=== PATIENT | male | born 1965 | race Caucasian/White ===

== ENCOUNTER 2024-10-21 12:48 | Inpatient (IN) ==
--- NOTE | 2024-10-21 13:41 | Emergency Department Note ---
Impression & Plan Closed left hip fracture, Fall due to ice or snow, Work related injury, Hypertension ED Provider Note CHIEF COMPLAINT: left hip pain, fall on ice HISTORY OF PRESENT ILLNESS: This 59-year-old male patient presents to the emergency department via ambulance for evaluation of left hip pain. 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 This injury happened at work. The patient states he landed on his left hip. He denies any head injury. He denies neck pain or loss of consciousness. He states he was unable to move or use the left lower extremity and needed assistance onto the ambulance stretcher. The patient has been unable to bear any weight. He denies any numbness or tingling. He denies any abdominal pain, back pain, chest pain, shortness of breath. He was given fentanyl by EMS and is complaining of some nausea. The patient denies loss of control of his bowel or bladder function. No history of injury to the left hip. He does report a history of hypertension, but states he does not take his prescribed medication because he does not feel like taking it. Last meal was last night. He states he had a brownie at about 10:45 this morning. Fall occurred around 11am. This was witnessed by his daughter and the client who corroborate the story. No LOC. No vision changes. History provided by: patient REVIEW OF SYSTEMS: A 10 system review of systems was performed with positives and pertinent negatives listed in the history of present illness. All other systems were reviewed and are negative. ALLERGIES: NKDA PHYSICAL EXAM: VITALS: Vitals are noted on the nurse's note and reviewed by myself. GENERAL: This is a 59-year-old male, in no acute distress, nondiaphoretic, well- developed well-nourished. SKIN: The skin was without rashes, erythema, edema, or bruising. There is no tenting of the skin. Capillary refill less than 2 seconds. HEAD: Normocephalic atraumatic. EARS: External auditory canals clear, tympanic membranes pearly pinedo without erythema or effusion bilaterally. No hemotympanum. Negative moseley sign EYES: Pupils equal round and reactive to light and accommodation. Conjunctivae without injection, sclerae without icterus. Extraocular movements intact. NOSE: Patent, turbinates without inflammation or discharge. No sinus tenderness. MOUTH: Mucous membranes moist. Tonsils are not enlarged. Pharynx without erythema or exudate. Uvula midline. Airway patent. Tongue does not deviate. NECK: Supple without nuchal rigidity. No lymphadenopathy. Cervical spine is nontender. No JVD. HEART: Regular rate and rhythm without murmurs gallops or rubs. LUNGS: Expiratory wheezing bilaterally. No retractions or accessory muscle use. ABDOMEN: Positive bowel sounds x 4. Soft, nontender, without masses or organomegaly. Roach sign negative. No guarding or rebound tenderness. MUSCULOSKELETAL: Tenderness to palpation of the left hip. The patient is unable to move the left lower extremity. No muscle atrophy, erythema, or edema noted. Full range of motion without joint tenderness in all extremities. No tenderness to palpation. Normal gait. Strength 5/5 throughout. NEURO: Patient was alert and oriented to person place and time. Normal sensation to light and sharp touch. Deep tendon reflexes 2+ throughout. No focal neurological deficits. An order was placed for continuous child monitor. The monitor showed a sinus bradycardia at a ventricular rate of 58 bpm, per my interpretation. EKG was reviewed by myself and found to be sinus bradycardia at a rate of 53 beats per minute and per my interpretation reveals prolonged QT with a QTc of 480ms. no prior EKG available for comparison. Imaging as interpreted by myself and the radiologist revealed left hip fracture, with radiologist interpretation as above. I agree with the radiologist's findings as based upon my independent interpretation. EMERGENCY DEPARTMENT COURSE: The patient was seen and evaluated as above. The patient presents to the emergency department for left hip pain after fall on the ice. The patient landed on his left hip. IV access was obtained, labs were drawn. The patient had been administered 300 mcg fentanyl via EMS while in route. This did resolve the patient's pain, though the patient did become hypoxic and did become hypoxic on initial evaluation during his ED visit. Initial concern was for left hip fracture given the patient's history and complaints. X-rays of the left hip and pelvis as well as chest x-ray were completed and reviewed by myself radiologist as noted. Patient was found to have acute, comminuted, angulated and displaced intertrochanteric left femoral fracture. Guillory catheter was placed. Labs reviewed. There is no leukocytosis. Mild anemia with a hemoglobin of 12.9. No thrombocytopenia. Renal, hepatic function and electrolytes without significant abnormality. INR 1.0. Urinalysis positive for blood, ketones, but no evidence of infection. Given the left hip fracture, I did recommend inpatient care. I discussed the case with Dr. Cabrera as well as his physician transition assistant, Chioma who were agreeable with inpatient admission, NPO after midnight, and likely surgery tomorrow. The patient and family were updated. They were agreeable to admission. I discussed the case with the manager facility. [facility] Did advise him of the patient's uncontrolled hypertension due to noncompliance as well as my concern for underlying COPD given his smoking history and wheezing on examination. [facility] Orthopedics will consult and likely operate in the morning. Please see hospitalist and orthopedics dictation regarding ongoing management and care of this patient. This visit is during a period of high volume and high acuity in the emergency department. I attest that I have personally reviewed the patient medication list. I attest that I have reviewed the patient's blood pressure and it was found to be elevated. Referred to hospitalist for further management GCS: 15 In the evaluation and treatment of this patient the following differential diagnoses were entertained: Fracture, dislocation, neurovascular compromise, compartment syndrome, soft tissue injury, as well as other pathologies. The chart was completed utilizing [email or web address] Speech voice recognition software. Grammatical errors, random word insertions, pronoun errors, and incomplete sentences are an occasional consequence of this system due to software limitations, ambient noise, and hardware issues. Any formal questions or concerns about the content, text, or information contained within the body of this dictation should be directly addressed to the provider for clarification. 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 Beliefs That Will Affect Care: None Current Living Situation: Significant Other Other Information That Helps Us Care for You: No Feels Safe at Home: Yes Safety Concerns: Feels Safe At This Time Assistive Devices: Glasses Allergies Allergies Allergy/AdvReac Type Severity Reaction Status Date / Time No Known Allergies Allergy Unverified 10/21/24 15:48 Home Meds Home Medications Medication Instructions Recorded Confirmed No Known Home Medications 10/21/24 10/21/24 Results & Data (ED) Vital Signs Vital Signs - 24 hr 10/21/24 13:06 10/21/24 13:11 10/21/24 13:49 Temperature 36.5 C Temperature Source Oral Pulse Rate 58 L 54 L Pulse Rate [Apical] Respiratory Rate 16 Respiratory Effort / Characteristics Non-Labored Spontaneous Respiratory Depth Normal Respiratory Pattern Regular Blood Pressure 187/108 H Blood Pressure [Right Arm] Blood Pressure Mean 134 Blood Pressure Mean [Right Arm] Blood Pressure Position Lying Blood Pressure Position [Right Arm] Pulse Oximetry 88 L 88 L 94 Oxygen Delivery Method Room Air Room Air Room Air Oxygen Flow Rate Sepsis Recent Fever Within 48 Hours No Sepsis New/Unexplained Change in Mental Status N/A Sepsis Action Taken by Nursing No Action Required Oxygen Flow Rate - Titration 2 Pulse Oximetry Post Tiitration 94 10/21/24 14:30 10/21/24 14:54 Temperature Temperature Source Pulse Rate 59 L Pulse Rate [Apical] 66 Respiratory Rate 16 Respiratory Effort / Characteristics Spontaneous Respiratory Depth Respiratory Pattern Blood Pressure Blood Pressure [Right Arm] 175/110 H Blood Pressure Mean Blood Pressure Mean [Right Arm] 131 Blood Pressure Position Blood Pressure Position [Right Arm] Lying Pulse Oximetry 95 Oxygen Delivery Method Nasal Cannula Oxygen Flow Rate 2 Sepsis Recent Fever Within 48 Hours Sepsis New/Unexplained Change in Mental Status Sepsis Action Taken by Nursing Oxygen Flow Rate - Titration Pulse Oximetry Post Tiitration Laboratory Data 10/21/24 13:40 10/21/24 13:40 Lab Results 10/21/24 Range/Units 13:40 WBC 7.65 (4.8-10.8) K/ul RBC 4.37 L (4.70-6.10) M/uL Hgb 12.9 L (14.0-18.0) g/dl Hct 37.7 L (42.0-52.0) % MCV 86.3 (80.0-100.0) fL MCH 29.5 (25.0-34.0) pg MCHC 34.2 (32.0-36.0) g/dL RDW Std Deviation 37.7 (36.4-46.3) fL RDW Coeff of Stacey 11.9 (11.5-14.5) % Plt Count 149 (130-400) K/uL MPV 9.0 L (9.4-12.4) fL Immature Gran % (Auto) 0.4 % Neut % (Auto) 74.7 % Lymph % (Auto) 18.2 % Loíza % (Auto) 5.1 % Eos % (Auto) 1.2 % Baso % (Auto) 0.4 % Neut # (Auto) 5.72 (1.40-6.50) K/uL Lymph # (Auto) 1.39 (1.20-3.40) K/uL [place] # (Auto) 0.39 (0.11-0.59) K/uL Eos # (Auto) 0.09 (0.00-0.50) K/uL Baso # (Auto) 0.03 (0.00-0.20) K/uL Immature Gran # (Auto) 0.03 (0.01-0.20) K/uL PT 10.9 (9.0-12.0) Seconds INR 1.0 (0.9-1.1) APTT 26 (21-31) Seconds PTT Ratio 1.0 Sodium 138 (136-145) mmol/L Potassium 3.8 (3.5-5.1) mmol/L Chloride 105 (98-107) mmol/L Carbon Dioxide 28 (21-32) mmol/L Anion Gap 5 (3-11) BUN 14 (6-23) mg/dl Creatinine 0.77 (0.6-1.4) mg/dl Est Cr Clr Drug Dosing 126.3 ml/min eGFR 103.77 BUN/Creatinine Ratio 18.2 (10-20) Glucose 171 H (70-99(Fasting)) mg/dl Calcium 8.3 L (8.6-10.3) mg/dl Total Bilirubin 0.4 (0.2-1.0) mg/dl AST 18 (13-39) U/L ALT 15 (7-52) U/L Alkaline Phosphatase 71 (34-104) U/L Total Protein 6.9 (6.0-8.3) gm/dl Albumin 4.2 (3.4-5.0) gm/dl Globulin 2.7 (2.5-4.0) gm/dl Albumin/Globulin Ratio 1.6 (0.9-2) Administered Medications Acetaminophen (Acetaminophen 325 Mg Tab) 650 mg PO Q6H EMILIE Stop: 11/20/24 16:14 Last Admin: 10/21/24 21:43 Dose: 650 mg Documented By: Admin: 10/21/24 16:57 Dose: 650 mg Documented By: NASIMA Albuterol (Albut/Ipratrop 3mg/0.5mg Neb 3 Ml Vial) 3 ml NEB Q6R [facility]; Protocol Stop: 11/20/24 18:59 Last Admin: 10/21/24 20:58 Dose: Not Given Documented By: GROVERB Budesonide (Budesonide 0.5 Mg/2 Ml Vial (Pulmicort)) 0.5 mg NEB BIDR [facility] Stop: 11/20/24 16:14 Last Admin: 10/21/24 20:57 Dose: 0.5 mg Documented By: Admin: 10/21/24 17:01 Dose: Not Given Documented By: KEIRY Docusate Sodium (Docusate Sodium 100 Mg Cap) 100 mg PO BID EMILIE Stop: 11/20/24 20:59 Last Admin: 10/21/24 21:44 Dose: Not Given Documented By: MARLA Formoterol Fumarate (Formoterol 20 Mcg/2 Ml Vial) 20 mcg NEB BIDR EMILIE Stop: 11/20/24 16:14 Last Admin: 10/21/24 20:57 Dose: 20 mcg Documented By: Admin: 10/21/24 17:02 Dose: Not Given Documented By: CRG Hydromorphone HCl (Hydromorphone Inj 1 Mg/Ml Syringe) 1 mg IV Q6H PRN PRN Reason: Severe Pain (Scale 7, 8, 9,10) Stop: 11/04/24 16:08 Last Admin: 10/21/24 18:01 Dose: 1 mg Documented By: HRB Discontinued Medications Fentanyl Citrate (Fentanyl Citrate Pf 100 Mcg/2 Ml Vial) 50 mcg IV NOW STA Stop: 10/21/24 15:13 Last Admin: 10/21/24 15:26 Dose: 50 mcg Documented By: NASIMA Hydrochlorothiazide (Hydrochlorothiazide 25 Mg Tab) 12.5 mg PO NOW STA Stop: 10/21/24 16:16 Last Admin: 10/21/24 16:59 Dose: 12.5 mg Documented By: NASIMA Lisinopril (Lisinopril 20 Mg Tab) 20 mg PO NOW STA Stop: 10/21/24 16:16 Last Admin: 10/21/24 16:58 Dose: 20 mg Documented By: NASIMA Methylprednisolone (Methylprednisolone 125 Mg/2 Ml Vial) 60 mg IV NOW STA Stop: 10/21/24 16:12 Last Admin: 10/21/24 16:57 Dose: 60 mg Documented By: NASIMA Morphine Sulfate (Morphine Sulfate 4 Mg/Ml 1 Ml Carp\Vial) 4 mg IV NOW STA Stop: 10/21/24 14:28 Last Admin: 10/21/24 14:32 Dose: 4 mg Documented By: EDUARDOK Ondansetron HCl (Ondansetron Inj 2 Mg/Ml 2 Ml Vial) 4 mg IV NOW STA Stop: 10/21/24 13:23 Last Admin: 10/21/24 13:44 Dose: 4 mg Documented By: TNK Imaging Data Radiologist's Impression: Chest X-Ray 10/21/24 13:23 SUPINE PORTABLE AP CHEST RADIOGRAPH CLINICAL HISTORY: Fall. Left hip pain. COMPARISON STUDY: No previous studies for comparison. FINDINGS: Lung volumes are normal. Lungs are clear. There is no pneumothorax or pleural effusion. Cardiac size is normal. Mediastinal contours are normal. There is no evidence for pulmonary edema. Postoperative findings within the spine are incidentally noted. IMPRESSION: No acute cardiopulmonary findings. ACT 112: Negative or not required by law. Electronically signed by: Chuckie Garza M.D. 10/21/2024 3:00 PM Hip/Pelvis X-Ray 10/21/24 13:23 XR hip LT 2V w pelvis HISTORY: 59 years-old Male pain, fall on ice acute left hip pain status post fall COMPARISON: None TECHNIQUE: AP view the pelvis with 2 views of the left hip FINDINGS: Acute comminuted angulated and mildly displaced fracture of the proximal left femur involves the intertrochanteric distribution. There may also be associated subtrochanteric extension. No dislocation. There is moderate soft tissue swelling. IMPRESSION: Acute, comminuted, angulated and displaced intertrochanteric left femoral fracture ACT 112: Negative or not required by law. The above report was generated using voice recognition software. It may contain grammatical, syntax or spelling errors. Electronically signed by: Sulaiman Winter M.D. 10/21/2024 2:48 PM Discharge Plan Visit Data Chief Complaint: Fall ED Provider: Aydin Arauz ED Midlevel Provider: Nikky Mora Discharge Problem: Closed left hip fracture, Fall due to ice or snow, Work related injury, Hypertension Patient Disposition: Admitted As Inpatient Discharge Instructions Interventions: ED Discharge Assessment Last Done: 10/21/24 17:18
[2024-10-21] MEDS: ONDANSETRON INJ 2 MG/ML 2 ML VIAL IV STA (13:44)
[2024-10-21 14:01] LABS: Basophils # (auto) 0.03 K/uL (0.00-0.20); Basophils % (auto) 0.4 %; Eosinophils # (auto) 0.09 K/uL (0.00-0.50); Eosinophils % (auto) 1.2 %; Hematocrit (blood only) 37.7 % (42.0-52.0); Hemoglobin 12.9 g/dl (14.0-18.0); Immature Granulocytes # (auto) 0.03 K/uL (0.01-0.20); Immature Granulocytes % (auto) 0.4 %; Lymphocytes # (auto) 1.39 K/uL (1.20-3.40); Lymphocytes % (auto) 18.2 %; Mean Corpuscular Hemoglobin 29.5 pg (25.0-34.0); Mean Corpuscular Hgb Conc 34.2 g/dL (32.0-36.0); Mean Corpuscular Volume 86.3 fL (80.0-100.0); Monocytes # (auto) 0.39 K/uL (0.11-0.59); Monocytes % (auto) 5.1 %; Neutrophils # (auto) 5.72 K/uL (1.40-6.50); Neutrophils % (auto) 74.7 %; Platelet Count 149 K/uL (130-400); RDW Coefficient of Variation 11.9 % (11.5-14.5); RDW Standard Deviation 37.7 fL (36.4-46.3); Red Blood Count 4.37 M/uL (4.70-6.10); White Blood Count 7.65 K/ul (4.8-10.8)
[2024-10-21 14:25] LABS: Albumin Globulin Ratio 1.6 (0.9-2); Albumin Level 4.2 gm/dl (3.4-5.0); BUN Creatinine Ratio 18.2 (10-20); Bilirubin,Total 0.4 mg/dl (0.2-1.0); Calcium 8.3 mg/dl (8.6-10.3); Creatinine Clr Calc Pharmacy 126.3 ml/min; Globulin 2.7 gm/dl (2.5-4.0); Potassium 3.8 mmol/L (3.5-5.1); Total Protein 6.9 gm/dl (6.0-8.3)
[2024-10-21 14:29] LABS: Partial Thromboplastin Time 26 Seconds (21-31); Prothrombin Time 10.9 Seconds (9.0-12.0)
[2024-10-21] MEDS: MoRPHine SULFATE 4 MG/ML 1 ML CARP\\VIAL IV STA (14:32)
--- NOTE | 2024-10-21 14:49 | XRay Report ---
XR hip LT 2V w pelvis HISTORY: 59 years-old Male pain, fall on ice acute left hip pain status post fall COMPARISON: None TECHNIQUE: AP view the pelvis with 2 views of the left hip FINDINGS: Acute comminuted angulated and mildly displaced fracture of the proximal left femur involves the inte rtrochanteric distribution. There may also be associated subtrochanteric extension. No dislocation. T here is moderate soft tissue swelling. IMPRESSION: Acute, comminuted, angulated and displaced intertrochanteric left femoral fracture ACT 112: Negative or not required by law. The above report was generated using voice recognition software. It may contain grammatical, syntax o r spelling errors. Electronically signed by: Sulaiman Winter M.D. 10/21/2024 2:48 PM
--- NOTE | 2024-10-21 15:01 | XRay Report ---
SUPINE PORTABLE AP CHEST RADIOGRAPH CLINICAL HISTORY: Fall. Left hip pain. COMPARISON STUDY: No previous studies for comparison. FINDINGS: Lung volumes are normal. Lungs are clear. There is no pneumothorax or pleural effusion. Car diac size is normal. Mediastinal contours are normal. There is no evidence for pulmonary edema. Posto perative findings within the spine are incidentally noted. IMPRESSION: No acute cardiopulmonary findings. ACT 112: Negative or not required by law. Electronically signed by: Chuckie Garza M.D. 10/21/2024 3:00 PM
[2024-10-21] MEDS: fentaNYL citrate PF 100 MCG/2 ML VIAL IV STA (15:26)
[2024-10-21] MEDS ORDERED: LEVALBUTEROL HCL 0.63 MG/3 ML NEB NEB PRN (16:11)
[2024-10-21] MEDS ORDERED: ALUMINUM/MAGNESIUM SUSP 30 ML UDC PO PRN (16:12)
[2024-10-21] MEDS ORDERED: ONDANSETRON INJ 2 MG/ML 2 ML VIAL IV PRN (16:12)
[2024-10-21] MEDS ORDERED: MAGNESIUM HYDROXIDE SUSP 30 ML UDC PO PRN (16:12)
[2024-10-21] MEDS ORDERED: hydrALAZINE HCL 25 MG TAB PO PRN (16:16)
--- NOTE | 2024-10-21 16:30 | Electrocardiogram Report ---
Test Reason : Blood Pressure : */* mmHG Vent. Rate : 53 BPM Atrial Rate : 53 BPM P-R Int : 136 ms QRS Dur : 86 ms QT Int : 512 ms P-R-T Axes : 68 56 71 degrees QTcB Int : [address] elevation, consider early repolarization, pericarditis, or injury Prolonged QT Abnormal ECG No previous ECGs available Confirmed by Ventura Brown ([id number]) on 10/21/2024 4:30:33 PM Referred By: REFERRED SELF Confirmed By: Ventura Brown
--- NOTE | 2024-10-21 16:37 | History & Physical Report ---
Date of Service October 21, 2024 Assessment & Plan (1) Closed left hip fracture: Plan Mechanical fall Left Hip fracture Admitting left hip XR with Acute, comminuted, angulated and displaced intertrochanteric left femoral fracture Pain management, bowel regimen, nausea medications N.p.o. midnight RCRI index - risk of major cardiac event 3.9. Pt at mild to mod risk for much needed hip sx. Mild COPD exacerbation: Patient reports that he does not have diagnosis of COPD, given his smoking history he must have undiagnosed underlying COPD. Patient with some mild wheezing bilaterally on exam. Patient denies any increase/change in his baseline cough or nature of sputum production. Patient denies sore throat or acute viral illness. CXR with no acute finding. Will give him IV steroid x1 then nebulization w/ budesonide and Perforomist. Patient made aware that he will need pulmonary function test in about 2 to 3 months time upon discharge. Will continue to optimize the lung function during hospital stay. Hypertensive urgency: Blood pressure elevated at 187/108 at presentation. Patient noncompliant with his blood pressure medication, patient has a history of hypertension. Now pain also contributing to his high BP. Restart his home lisinopril and hydrochlorothiazide. As needed hydralazine for blood pressure of > 165 mmHg. DVT prophylaxis: SCDs Full code History of Present Illness Chief Complaint: fall, left hip pain Primary Care Provider: Qing Melo PA-C 59-year-old male with PMH of HTN, medical noncompliance, ongoing tobacco use abuse [15 cigarettes a day for more than 45 years] presented to the ED after he slipped on ice and hit his left hip. Came in with complaint of left hip pain. Patient denies any lightheadedness/dizziness/palpitation prior to fall. Patient noted to have left hip fracture. Patient denies fever/sore throat/nausea/vomiting/chest pain/acute changes in bowel or bladder habits/acute changes in appetite. Patient reports he was on lisinopril and hydrochlorothiazide in the past for blood pressure management, he discontinued those medications by himself because he didn't like it made him pee. Patient reports his cough at baseline, denies any increase in frequency of the cough or any change in the mucus production. Patient reports smoking 15 cigarettes a day for more than 45 years. Patient denies previous drug use, reports very occasional alcohol drinks. Full code Medication reviewed with the patient at bedside. Plan of care discussed with the patient at bedside who voiced understanding and was agreeable to plan of care. Allergies Allergy/AdvReac Type Severity Reaction Status Date / Time No Known Allergies Allergy Unverified 10/21/24 15:48 Home Medications Medication Instructions Recorded Confirmed Type No Known Home Medications 10/21/24 10/21/24 History Past Med/Surg History Problem List (Updated 10/21/24 @ 16:37 by Paulette Carrillo MD) Closed left hip fracture Medical History Hypertension Social History Smoking Status: Current every day smoker Tobacco Type: Cigarettes Feels Safe at Home: Yes Review of Systems Review of Systems: Negative otherwise mentioned in HPI. Physical Exam Physical Exam: GENERAL: Alert and oriented x3. NAD, on RA. HEENT: No pallor, no icterus. Pupils equal, round and reactive to light. Oral mucosa moist. NECK: No JVD, no neck masses. HEART: S1 and S2 heard. Regular rate and rhythm. No murmur, no gallop. RESPIRATORY SYSTEM: Normal AP diameter. No accessory muscle use. b/l wheezing, no crackles. ABDOMEN: Soft, bowel sounds present, nontender, no distention. CENTRAL NERVOUS SYSTEM: No facial droop. Speech is clear. Obeys simple commands. Moves extremities. EXTREMITIES: No edema, no erythema seen. LLE ext rotated/shortened. Lt hip tender rom. Results & Data Results & Data Vital Signs (Past 12 Hours) Vital Signs Temp Pulse Pulse Resp BP BP Pulse Ox 10/21/24 14:54 59 L 10/21/24 14:30 66 16 175/110 H 95 10/21/24 13:49 54 L 94 10/21/24 13:11 88 L 10/21/24 13:06 36.5 C 58 L 16 187/108 H 88 L O2 Del Method O2 Flow Rate 10/21/24 14:54 10/21/24 14:30 Nasal Cannula 2 10/21/24 13:49 Room Air 10/21/24 13:11 Room Air 10/21/24 13:06 Room Air
[2024-10-21] MEDS: ACETAMINOPHEN 325 MG TAB PO SCH (16:57)
[2024-10-21] MEDS: methylPREDNISolone 125 MG/2 ML VIAL IV STA (16:57)
[2024-10-21] MEDS: lisinopril 20 MG TAB PO STA (16:58)
[2024-10-21] MEDS: hydroCHLOROthiazide 25 MG TAB PO STA (16:59)
[2024-10-21] MEDS: BUDESONIDE 0.5 MG/2 ML VIAL (PULMICORT) NEB SCH (17:01)
[2024-10-21] MEDS: FORMOTEROL 20 MCG/2 ML VIAL NEB SCH (17:02)
--- NOTE | 2024-10-21 17:05 | Orthopedic Consultation ---
Date of Service October 21, 2024 Assessment & Plan (1) Closed left hip fracture: He was educated on this injury and we discussed treatment options. I recommend surgical fixation specifically we'll plan on doing a long troch nail of the left femur. Procedure was explained and he wants to proceed with surgery. NPO after midnight for surgery Sunday 10/22, long troch nailing of left femur History of Present Illness Reason for Consultation: . Requesting Physician: . .59 year old patient slipped and fell on the ice today and injured his left hip. He was unable to get up/walk. Xrays revealed a displaced comminuted left intertroch/subtroch fx. He was admitted to the hospitalist service. Denies hip pain prior to the fall. No other injuries. Allergies Allergy/AdvReac Type Severity Reaction Status Date / Time No Known Allergies Allergy Unverified 10/21/24 15:48 Home Medications Medication Instructions Recorded Confirmed Type No Known Home Medications 10/21/24 10/21/24 History Past Med/Surg History Problem List Closed left hip fracture Medical History Hypertension Social History Smoking Status: Current every day smoker Tobacco Type: Cigarettes Feels Safe at Home: Yes Review of Systems All systems reviewed & are unremarkable except as noted in HPI & below. Physical Exam . alert and oriented. NAD Left leg: +swelling in his thigh, tender to palpation. Able to dorsiflex and plantarflex. NVI Results & Data Results & Data Laboratory Results . Diagnostic Findings .xrays show a left displaced comminuted intertroch/subtroch femur fx. PG Care Time/CCT Total # of Minutes Spent Total Time Spent with Patient: Total time spent is greater than 50% in coordination of care (as documented) at patient's floor/unit and/or counseling patient: Coding Level of Care Code 83820 IN/OBS CONSULT LVL 4,60M (57 - DECISION FOR SURGERY) Diagnoses Closed left hip fracture S72.002A
--- NOTE | 2024-10-21 17:08 | Anesthesiology Consultation ---
Date of Service October 21, 2024 Assessment & Plan Chart Review Chart Review: Acceptable Risk for Surgery and Patient NOT seen in Pre Admission Testing Consults Requested none ASA ASA3 Proposed Anesthesia Anesthesia Type: General History Surgery Operation Date: 10/22/24 07:30 Proposed Procedures p Left Long Trochanteric Nail - Jared Cabrera MD Height/Weight Height: 5 ft 11 in Weight: 100.6 kg Allergies Allergy/AdvReac Type Severity Reaction Status Date / Time No Known Allergies Allergy Unverified 10/21/24 15:48 Medications Home Medications Medication Instructions Recorded Confirmed Last Taken No Known Home Medications 10/21/24 10/21/24 Unknown Active Medications Generic Name Dose Route Start Last Admin Trade Name Freq PRN Reason Stop Dose Admin Acetaminophen 650 mg 10/21/24 16:15 10/21/24 16:57 Acetaminophen 325 Mg Tab PO 11/20/24 16:14 650 mg Q6H EMILIE Administration Budesonide 0.5 mg 10/21/24 16:15 10/21/24 17:01 Budesonide 0.5 Mg/2 Ml Vial (Pulmicort) NEB 11/20/24 16:14 Not Given BIDR EMILIE Formoterol Fumarate 20 mcg 10/21/24 16:15 10/21/24 17:02 Formoterol 20 Mcg/2 Ml Vial NEB 11/20/24 16:14 Not Given BIDR EMILIE Past Medical History Medical History Hypertension obese cigarette smoker COPD HTN Medically non-compliant Exercise / Class Metabolic Activity II 4-5 Yardwork/Stairs/Walk up hill Past Anesthesia History No Hx of Anesthesia Complications and No Family Hx of Anesthesia Complications History of PONV No Hx of PONV and No Hx of Motion Sickness Social History Smoking Status: Current every day smoker Physical Exam Vital Signs Last Vital Signs Temp 36.5 C 10/21/24 13:06 Pulse 68 10/21/24 16:34 Resp 18 10/21/24 16:34 BP 181/110 H 10/21/24 16:34 Pulse Ox 98 10/21/24 16:34 O2 Del Method Room Air 10/21/24 16:34 O2 Flow Rate 2 10/21/24 14:30 Testing Laboratory Results 10/21/24 13:40 10/21/24 13:40 PT 10.9 Seconds (9.0-12.0) 10/21/24 13:40 INR 1.0 (0.9-1.1) 10/21/24 13:40 APTT 26 Seconds (21-31) 10/21/24 13:40 Electrocardiogram Date: 10/21/24 Findings: + SB @ (@ 53;ST elevation;prolonged QT) Chest X-Ray Date: 10/21/24 Findings: + NAD
[2024-10-21 17:56] LABS: Appearance Urine Clear (Clear); Bacteria Urine Automated None Seen (None Seen); Bilirubin Urine Negative (Negative); Blood Urine 2+ (Negative); Cast Urine Automated 0-2 /lpf (0-2); Color Urine Yellow; Epithelial Cell Urine Auto 0-2 /hpf (0-2); Glucose Urine UA Negative (Negative); Ketones Urine 1+ (Negative); Leukocyte Esterase Urine Negative (Negative); Nitrite Urine Negative (Negative); Protein Urine Negative (Negative); RBC Urine Automated >20 /hpf (0-2); Urobilinogen Urine Negative (Negative); WBC Urine Automated 0-5 /hpf (0-5); pH Urine 6.5 (4.5-7.5)
[2024-10-21] MEDS: HYDROmorphone INJ 1 MG/ML SYRINGE IV PRN (18:01)
[2024-10-21] MEDS ORDERED: ceFAZolin 2000MG 2,000 MG/15 ML SYR IV ONE (18:27)
[2024-10-21] MEDS: ALBUT/IPRATROP 3MG/0.5MG NEB 3 ML VIAL NEB SCH (20:58)
[2024-10-21] MEDS: DOCUSATE SODIUM 100 MG CAP PO SCH (21:44)
--- OUTSIDE RECORDS SUMMARY | 2024-10-21 23:58 | External Medical Summary | Summary of Care ---
Author Name Unknown Organization [facility] Address [address] [facility] [place] [address] Phone [phone] Care Team Providers Care Client Services Assistant Name Role Phone Qing Melo PA-C Primary Care Provider Encounter Details Date Type Department Care Team (Late st Contact Info) Description 05/14/2024 Orders Only PATIENT PORTAL DO NOT DELETE THIS DEPT USED BY [place] [id number] Allergies No known active allergiesdocumented as of this encounter (statuses as of 05/14/2024) Medications Medication Sig Dispensed Refills Start Date End Date Status Clobetasol Propionate 0.05 % External Ointment (Temovate) Apply twice a day to affected areas long as needed 60 g 5 01/19/2024 Active predniSONE 20 MG Oral Tablet (Deltasone)Indication s:Acute right-sided low back pain without sciatica Take 3 tabs for 3 days, 2 tabs for 3 days, 1 tab for 3 days, 1/2 tab for 3 days 20 Tablet 02/15/2024 Active Cyclobenzaprine HCl 10 MG Oral Tablet (Flexeril)Indications :Muscle spasm of back Take 1 Tablet by mouth 2 times a day as needed for Muscle spasms. 20 Tablet 02/15/2024 Active hydroCHLOROthiazide 12.5 MG Oral Capsule Take 1 Capsule by mouth in the morning. 90 Capsule 05/04/2024 Active Lisinopril 20 MG Oral Tablet (Prinivil)Indications :Essential hypertension with goal blood pressure less than 140/90 TAKE 1 TABLET BY MOUTH EVERY DAY IN THE MORNING 30 Tablet 05/10/2024 Active documented as of this encounter (statuses as of 05/14/2024) Active Problems Problem Noted Date Diagnosed Date Essential hypertension with goal blood pressure less than 140/90 03/13/2016 Lymph node enlargement 12/24/2012 Backache 12/05/2011 Neck stiffness 12/05/2011 Tingling 12/05/2011 Tobacco use disorder 12/05/2011 documented as of this encounter (statuses as of 05/14/2024) Resolved Problems Problem Noted Date Diagnosed Date Resolved Date Mesenteric panniculitis 02/23/201501/05 MEDICATION USE AGREEMENT 08/25/2013 Swelling, mass, or lump in chest 12/24/2012 02/18/2023 Asthma, mild persistent 05/23/201102/05 Abdominal or pelvic swelling , mass or lump, unspecified site 01/08/2011 02/18/2023 documented as of this encounter (statuses as of 05/14/2024) Immunizations Name Administration Dates Next Due Pneumococcal Polysaccharide PPV23 (Pneumovax) 09/21/2012 Seasonal Influenza, Trivalen t, (IIV3), with Preserv, (Fluzone) 07/05/2014,06/06/2013,09/20/2012 TDAP, Age 7 and older, IM (Adacel) 11/05/2011 documented as of this encounter Social History Tobacco Use Types Packs/Day Years Used Date Smoking Tobacco: Some Days Cigarettes 0.5 30 Smokeless Tobacco: Former Chew Comments:Is looking into the wellness program-Smokes< 1 pack/day Alcohol Use Standard Drinks/Week Comments No 0 (1 standard drink = 0.6 oz pur e alcohol) socially rare holiday Utilities Answer Date Recorded Do you have trouble paying y our heating, water, or electric bill? (Adult - for ages 18 years and over) Not on file 02/23/2024 Is your family able to pay t he heat, water, or electric bill? (Household - for ages 0-17 years) Not on file 02/23/2024 Does your family have access to good internet? (Household - for ages 0-17 years) Not on file 02/23/2024 Social Connections Answer Date Recorded How often do you feel lonely or isolated from those around you? (Adult - for ages 18 years and over) Not on file 02/23/2024 Sex and Gender Information Value Date Recorded Sex Assigned at Not on file Gender Identity Not on file Sexual Orientation Not on file Job Start Date Occupation Industry Not on file Not on file Not on file documented as of this encounter Plan of Treatment Health Maintenance Due Date Last Done Comments HIV Screening 1981 Hepatitis B Vaccine (1 of 3 - 19+ 3-dose series) 1985 Cologuard 2011 Fecal Occult Blood Test 2011 Sigmoidoscopy 2011 Pneumococcal Vaccine: Pediatrics (0 to 5 Years) and At-Risk Patients (6 to 64 Years) (2 of 2 - PCV) 09/21/2013 09/21/2012 Zoster Vaccines (1 of 2) 2016 Depression Screening 12/04/2016 12/05/2015 Lipid Panel 07/14/2019 07/14/2014, 11/28/2010 DTap/Tdap Vaccines (2 - Td or Tdap) 11/04/2021 11/05/2011 GFR 11/30/2023 11/29/2022, 02/05, 11/02/2015, Additional history exists COVID-19 Vaccine ( - season) 2024 Influenza Vaccine (FLU shot) (#1) 2024 07/05/2014, 06/06/2013, 09/20/2012 Diabetes Screening 11/29/2025 11/29/2022, 0 11/02/2015, 01/22/2015, Additional history exists Colonoscopy 07/14/2026 07/14/2016 Colorectal Cancer Screening 07/14/2026 Albumin/Creatinine Ratio 11/05/2026 11/06/2023 Hepatitis C Screening Completed 12/14/2015 HPV (Gardasil) Vaccine Aged Out No lo nger eligible based on patient's age to complete this topic MENINGOCOCCAL (MENACTRA/MENVEO) Aged Out No longer eligible based on patient's age to complete this topic documented as of this encounter Medical Devices Not on filedocumented as of this encounter Advance Directives * Full Code (Latest Code Status on File) Date Activated Date Inactivated Comments 03/01/2011 11:20 AM 03/02/2011 6:26 PM This order reflects the patients wishes and were consensually agreed upon. Care Teams Client Services Assistant Relationship Specialty Start Date End Date Qing Melo PA-C [facility] [place], [place] [phone] PCP - General Physician Glass Installer 02/18/23 documented as of this encounter
--- OUTSIDE RECORDS SUMMARY | 2024-10-21 23:58 | External Medical Summary | Summary of Care ---
Author Name Unknown Organization [facility] Address [address] [place] [address] Phone [phone] Care Team Providers Care Desizing Pad Operator Name Role Phone Qing Melo PA-C Primary Care Provider Reason for Visit * Reason Onset Date Comments Medication Refill 05/04/2024 Encounter Details Date Type Department Care Team (Late st Contact Info) Description 05/04/2024 Refill [facility] [address] [place] [address] Qing Melo PA-C [address] [place], [place] [phone] Allergies No known active allergiesdocumented as of this encounter (statuses as of 06/02/2024) Medications Medication Sig Dispensed Refills Start Date End Date Status Clobetasol Propionate 0.05 % External Ointment (Temovate) Apply twice a day to affected areas long as needed 60 g 5 01/19/2024 Active predniSONE 20 MG Oral Tablet (Deltasone)Indica tions:Acute right-sided low back pain without sciatica Take 3 tabs for 3 days, 2 tabs for 3 days, 1 tab for 3 days, 1/2 tab for 3 days 20 Tablet 02/15/2024 Active Cyclobenzaprine HCl 10 MG Oral Tablet (Flexeril)Indicat ions:Muscle spasm of back Take 1 Tablet by mouth 2 times a day as needed for Muscle spasms. 20 Tablet 02/15/2024 Active hydroCHLOROthiazi de 12.5 MG Oral Capsule Take 1 Capsule by mouth in the morning. 90 Capsule 05/04/2024 Active Lisinopril 20 MG Oral Tablet (Prinivil)Indicat ions:Essential hypertension with goal blood pressure less than 140/90 Take 1 Tablet by mouth in the morning. 90 Tablet 1 11/02/2023 05/10/20 24 Discontinued hydroCHLOROthiazi de 12.5 MG Oral Capsule (Hydrodiuril) Take 1 Capsule by mouth in the morning. 90 Capsule 1 11/06/2023 05/04/20 24 Discontinued(Ref ill) documented as of this encounter (statuses as of 06/02/2024) Active Problems Problem Noted Date Diagnosed Date Essential hypertension with goal blood pressure less than 140/90 03/13/2016 Lymph node enlargement 12/24/2012 Backache 12/05/2011 Neck stiffness 12/05/2011 Tingling 12/05/2011 Tobacco use disorder 12/05/2011 documented as of this encounter (statuses as of 06/02/2024) Resolved Problems Problem Noted Date Diagnosed Date Resolved Date Mesenteric panniculitis 02/23/201501/05 MEDICATION USE AGREEMENT 08/25/2013 Swelling, mass, or lump in chest 12/24/2012 02/18/2023 Asthma, mild persistent 05/23/201102/05 Abdominal or pelvic swelling , mass or lump, unspecified site 01/08/2011 02/18/2023 documented as of this encounter (statuses as of 06/02/2024) Immunizations Name Administration Dates Next Due Pneumococcal [...] on file documented as of this encounter Miscellaneous Notes * Telephone Encounter - Irma Angel OSA - 06/02/2024 2:11 PM EDT Appointment scheduled for 11/02/2023 with Qing Melo * Telephone Encounter - Qing Melo PA-C - 05/04/2024 9:35 AM EDT 90 day rx sent, no further refills until a routine visit with a PCP * Telephone Encounter - Qing Melo PA-C - 05/04/2024 9:35 AM EDT Signed Prescriptions: Disp Refills hydroCHLOROthiazide 12.5 MG Oral Capsule 90 Cap*0 Sig: Take 1 Capsule by mouth in the morning. Authorizing Provider: QING MELO * Telephone Encounter - Justa Wells MED ASSIST - 05/04/2024 8:25 AM EDT No prescriptions requested or ordered in this encounter Last Visit: 01/19/2024 (in office), Visit date not found (telemedicine) Next Visit: Visit date not found Last date the medication was ordered: 11/06/2023 Patient Active Problem List Diagnosis Backache Neck stiffness Tingling Tobacco use disorder Lymph node enlargement Essential hypertension with goal blood pressure less than 140/90 Labs: Lab Results Component Value Date/Time CREATININE - [facility] 0.9 11/29/2022 07:45 PM CREATININE - [facility] 1.0 11/02/2015 02:36 PM CREATININE, RANDOM URINE - [facility] 91 11/06/2023 02:42 PM CREATININE-OUTSIDE LAB 1.00 01/22/2015 12:00 AM Lab Results Component Value Date/Time POTASSIUM - [facility] 4.0 11/29/2022 07:45 PM POTASSIUM - [facility] 4.3 11/02/2015 02:36 PM POTASSIUM-OUTSIDE LAB 3.9 01/22/2015 12:00 AM Lab Results Component Value Date/Time TSH - [facility] 2.06 11/02/2015 02:36 PM Lab Results Component Value Date/Time LDL CHOLESTEROL (CALCULATED) - [facility] 68 07/14/2014 11:02 AM LDL CHOLESTEROL (CALCULATED) - [facility] 65 11/28/2010 11:05 AM Lab Results Component Value Date/Time ALT - [facility] 29 12/14/2015 09:24 AM Hemoglobin AIC Results: No results found for: "HEMOGLOBIN A1C" documented in this encounter Plan of Treatment Upcoming Encounters Date Type Department Care Team (Late st Contact Info) Description 11/02/2024 9:00 AM EST Office Visit [facility] [address] [place], [place] [phone] Qing Melo PA-C [address] [place], [place] [phone] Health Maintenance Due Date Last Done Comments [...] 02/05, 11/02/2015, Additional history exists COVID-19 Vaccine (1 - season) 2024 Influenza Vaccine (FLU shot) [...] and were consensually agreed upon. Care Teams Desizing Pad Operator Relationship Specialty Start Date End Date Qing Melo PA-C [address] [place] [address] PCP - General Physician Director Of Financial Reporting 02/18/23 documented as of this encounter
--- OUTSIDE RECORDS SUMMARY | 2024-10-21 23:58 | External Medical Summary | Summary of Care ---
Author Name Unknown Organization [facility] Address [address] [place] [address] Phone [phone] Care Team Providers Care Bogger Operator Name Role Phone Qing Melo PA-C Primary Care Provider Reason for Visit * Reason Comments eRx-Medication Refill Encounter Details Date Type Department Care Team (Late st Contact Info) Description 05/08/2024 Refill [facility] [address] [place], [place] [phone] Qing Melo PA-C [address] [place], [place] [phone] Lipid screening*; Essential hypertension with goal blood pressure less than 140/90 Allergies No known active allergiesdocumented as of this encounter (statuses as of 05/12/2024) Medications Medication Sig Dispensed Refills Start Date End Date Status Clobetasol Propionate 0.05 % External Ointment (Temovate) Apply twice a day to affected areas long as needed 60 g 5 01/19/2024 Active predniSONE 20 MG Oral Tablet (Deltasone)Indicat ions:Acute right-sided low back pain without sciatica Take 3 tabs for 3 days, 2 tabs for 3 days, 1 tab for 3 days, 1/2 tab for 3 days 20 Tablet 02/15/2024 Active Cyclobenzaprine HCl 10 MG Oral Tablet (Flexeril)Indicati ons:Muscle spasm of back Take 1 Tablet by mouth 2 times a day as needed for Muscle spasms. 20 Tablet 02/15/2024 Active hydroCHLOROthiazid e 12.5 MG Oral Capsule Take 1 Capsule by mouth in the morning. 90 Capsule 05/04/2024 Active Lisinopril 20 MG Oral Tablet (Prinivil)Indicati ons:Essential hypertension with goal blood pressure less than 140/90 TAKE 1 TABLET BY MOUTH EVERY DAY IN THE MORNING 30 Tablet 05/10/2024 Active Lisinopril 20 MG Oral Tablet (Prinivil)Indicati ons:Essential hypertension with goal blood pressure less than 140/90 Take 1 Tablet by mouth in the morning. 90 Tablet 1 11/02/2023 Discontinued documented as of this encounter (statuses as of 05/12/2024) Active Problems Problem Noted Date Diagnosed Date Essential hypertension with goal blood pressure less than 140/90 03/13/2016 Lymph node enlargement 12/24/2012 Backache 12/05/2011 Neck stiffness 12/05/2011 Tingling 12/05/2011 Tobacco use disorder 12/05/2011 documented as of this encounter (statuses as of 05/12/2024) Resolved Problems Problem Noted Date Diagnosed Date Resolved Date Mesenteric panniculitis 02/23/201501/05 MEDICATION USE AGREEMENT 08/25/2013 Swelling, mass, or lump in chest 12/24/2012 02/18/2023 Asthma, mild persistent 05/23/201102/05 Abdominal or pelvic swelling , mass or lump, unspecified site 01/08/2011 02/18/2023 documented as of this encounter (statuses as of 05/12/2024) Immunizations Name Administration Dates Next Due Pneumococcal [...] encounter Miscellaneous Notes * Telephone Encounter - Ester Barrientos - 05/12/2024 3:53 PM EDT Received message from [facility] regarding patient needing an appointment and labs. Patient was notified. Successfully contacted patient and provided [facility] message. * Telephone Encounter - Deyanira Lewis PHARM Tech - 05/12/2024 3:41 PM EDT Received message from [facility] regarding patient needing an appointment and labs. Call Placed, Pt was agreeable to set up appointment but did not want to schedule at this time. Patient advised they will call back to set up appointment. Pt was driving. Thank you, Deyanira Lewis [facility] Career Guidance Technician II [facility] 05/12/2024,3:41 PM * Telephone Encounter - Irene Tyson [facility] - 05/10/2024 2:04 PM EDTSigned Prescriptions: Disp Refills Lisinopril 20 MG Oral Tablet (Prinivil) 30 Tab*0 Sig: TAKE 1 TABLET BY MOUTH EVERY DAY IN THE MORNING Authorizing Provider: QING MELO Ordering User: IRENE TYSON * Telephone Encounter - Irene Tyson RPh - 05/10/2024 2:01 PM EDT Provided 30 days supply with 0 refill. Per refill protocol patient should have routine labs on filewithin past year. Reviewed AMP report, Care Gaps/Health Maintenance, medications list, and for any routine labs typically ordered for this patient. Lab orders placed. Please contact patient to schedule office visit with PRIMARY CARE and advise of labs ordered for blood draw. Recommend patient to fast if able for labs. Patient may still have water and regular medications. Advise to obtain labs before requesting the next refill. Last Visit: 01/19/2024- acute (in office), Visit date not found (telemedicine) Next Visit: Visit date not found Thank you, Irene Tyson, PharmD Clinical Pharmacist [facility] [phone] 05/10/2024, 2:02 PM documented in this encounter Plan of Treatment Scheduled Orders Name Type Priority Associated Diagnoses Orde r Schedule LIPID PANEL WITH DIRECT LDL IF TG IS HIGH Lab Routine Lipid screening Expected: 05/10/2024, Expires: 05/10/2025 BASIC METABOLIC PANEL Lab Routine Essential hypertension with goal blood pressure less than 140/90 Expected: 05/10/2024, Expires: 05/10/2025 Health Maintenance Due Date Last Done Comments [...] Not on filedocumented as of this encounter Visit Diagnoses Diagnosis Lipid screening- Primary Screening for lipoid disorders Essential hypertension with goal blood pressure less than 140/90 documented in this encounter Advance Directives * Full Code (Latest Code Status on File) Date Activated Date Inactivated Comments 03/01/2011 11:20 AM 03/02/2011 6:26 PM This order reflects the patients wishes and were consensually agreed upon. Care Teams Bogger Operator Relationship Specialty Start Date End Date Qing Melo PA-C [facility] [address] PCP - General Physician Dust Brush Assembler 02/18/23 documented as of this encounter
--- OUTSIDE RECORDS SUMMARY | 2024-10-21 23:58 | External Medical Summary | Summary of Care ---
Author Name Unknown Organization [facility] Address [address] [place] [address] Phone [phone] Care Team Providers Care Patient Relations Representative Name Role Phone Qing Melo PA-C Primary Care Provider Reason for Visit * Reason Onset Date Comments Medication Refill 05/04/2024 Encounter Details Date Type Department Care Team (Late st Contact Info) Description 05/04/2024 Refill [facility] [address] [place] [address] Qing Melo PA-C [address] [place], [place] [phone] Allergies No known active allergiesdocumented as of this encounter (statuses as of 05/04/2024) Medications Medication Sig Dispensed Refills Start Date End Date Status Lisinopril 20 MG Oral Tablet (Prinivil)Indicati ons:Essential hypertension with goal blood pressure less than 140/90 Take 1 Tablet by mouth in the morning. 90 Tablet 1 11/02/2023 Active Clobetasol Propionate 0.05 % External Ointment (Temovate) [...] in the morning. 90 Capsule 05/04/2024 Active hydroCHLOROthiazid e 12.5 MG Oral Capsule (Hydrodiuril) Take 1 Capsule by mouth in the morning. 90 Capsule 1 11/06/2023 05/04/2024 Discontinue d(Refill) documented as of this encounter (statuses as of 05/04/2024) Active Problems Problem Noted Date Diagnosed Date Essential hypertension with goal blood pressure less than 140/90 03/13/2016 Lymph node enlargement 12/24/2012 Backache 12/05/2011 Neck stiffness 12/05/2011 Tingling 12/05/2011 Tobacco use disorder 12/05/2011 documented as of this encounter (statuses as of 05/04/2024) Resolved Problems Problem Noted Date Diagnosed Date Resolved Date Mesenteric panniculitis 02/23/201501/05 MEDICATION USE AGREEMENT 08/25/2013 Swelling, mass, or lump in chest 12/24/2012 02/18/2023 Asthma, mild persistent 05/23/201102/05 Abdominal or pelvic swelling , mass or lump, unspecified site 01/08/2011 02/18/2023 documented as of this encounter (statuses as of 05/04/2024) Immunizations Name Administration Dates Next Due Pneumococcal Polysaccharide PPV23 (Pneumovax) 09/21/2012 Seasonal Influenza, Split, I IV3, With Preserve, Inj 07/05/2014,06/06/2013,09/20/2012 TDAP, Age 7 and older, IM [...] encounter Miscellaneous Notes * Telephone Encounter - Qing Melo PA-C [...] documented in this encounter Plan of Treatment Health Maintenance [...] (2 - Td or Tdap) 11/04/2021 11/05/2011 COVID-19 Vaccine (1 - 2022- season) 2023 GFR 11/30/2023 11/29/2022, 02/05, 11/02/2015, Additional history exists Influenza Vaccine (FLU shot) (#1) 2024 07/05/2014, [...] and were consensually agreed upon. Care Teams Patient Relations Representative Relationship Specialty Start Date End Date Qing Melo PA-C [address] [place] [id number] PCP - General Physician Clerical Grader 02/18/23 documented as of this encounter
[2024-10-22] MEDS: ceFAZolin 2000MG 2,000 MG/15 ML SYR IV ONE ×2 (05:33→08:30)
[2024-10-22] MEDS ORDERED: ROCURONIUM BROMIDE 10 MG/ML 5 ML VIAL IV ONE (06:44)
[2024-10-22] MEDS ORDERED: GLYCOPYRROLATE 0.2 MG/ML VIAL ONE (06:44)
[2024-10-22] MEDS ORDERED: MIDAZOLAM HCL 1 MG/ML 2ML VIAL ONE (06:44)
[2024-10-22] MEDS ORDERED: ONDANSETRON INJ 2 MG/ML 2 ML VIAL ONE (06:44)
[2024-10-22] MEDS ORDERED: KETAMINE HCL 10MG/ML SYR ONE (06:44)
[2024-10-22] MEDS ORDERED: fentaNYL citrate PF 100 MCG/2 ML VIAL ONE (06:44)
[2024-10-22] MEDS ORDERED: LIDOCAINE 2% 2 ML VIAL/AMP(20MG/ML) INFIL ONE (06:44)
[2024-10-22] MEDS ORDERED: PROPOFOL IV EMULSION 10 MG/ML 20 ML VIAL IV ONE (06:44)
[2024-10-22] MEDS ORDERED: DEXAMETHASONE SOD INJ 4 MG/ML VIAL ONE (06:44)
[2024-10-22 07:29] LABS: Hematocrit (blood only) 34.7 % (42.0-52.0); Hemoglobin 11.8 g/dl (14.0-18.0); Mean Corpuscular Hemoglobin 28.9 pg (25.0-34.0); Mean Corpuscular Volume 84.8 fL (80.0-100.0); Mean Platelet Volume 8.9 fL (9.4-12.4); Platelet Count 184 K/uL (130-400); RDW Coefficient of Variation 11.9 % (11.5-14.5); RDW Standard Deviation 36.2 fL (36.4-46.3); Red Blood Count 4.09 M/uL (4.70-6.10); White Blood Count 9.85 K/ul (4.8-10.8)
[2024-10-22 07:50] LABS: BUN Creatinine Ratio 22.7 (10-20); Calcium 8.7 mg/dl (8.6-10.3); Phosphorus 3.2 mg/dl (2.5-4.9); Potassium 3.8 mmol/L (3.5-5.1)
--- NOTE | 2024-10-22 07:54 | History & Physical Bridge Note ---
Date of Service October 22, 2024 History & Physical Bridge Note I have examined the patient, reviewed the History & Physical and in the interval since the performance of the History & Physical I have noted the following changes of clinical significance: no changes noted. I reviewed the plan, risks, benefits, and alternatives for Left proximal femur closed or open reduction and internal fixation for his trochanteric hip fracture. He and his expressed understanding and are agreeable to proceed as planned.
[2024-10-22] MEDS ORDERED: PROMETHAZINE HCL 6.25 MG in SODIUM CHLORIDE 0.9% 50 ML IV PRN (07:56)
[2024-10-22] MEDS ORDERED: HYDROmorphone INJ 1 MG/ML SYRINGE IV PRN (07:56)
[2024-10-22] MEDS ORDERED: LABETALOL HCL IV 5 MG/ML 20ML IV PRN (07:56)
[2024-10-22] MEDS ORDERED: FLUMAZENIL 0.1 MG/1 ML 10 ML VIAL IV PRN (07:56)
[2024-10-22] MEDS ORDERED: ATROPINE SULFATE 0.1 MG/ML 10ML SYR IV PRN (07:56)
[2024-10-22] MEDS ORDERED: fentaNYL citrate PF 100 MCG/2 ML VIAL IV PRN (07:56)
[2024-10-22] MEDS ORDERED: NALOXONE HCL 0.4 MG/1 ML VIAL/CARP IV PRN (07:56)
[2024-10-22] MEDS ORDERED: ONDANSETRON INJ 2 MG/ML 2 ML VIAL IV PRN (07:56)
[2024-10-22] MEDS ORDERED: ePHEDrine sulfate 50 MG/ML AMP IV PRN (07:56)
[2024-10-22] MEDS ORDERED: KETOROLAC 30 MG/ML VIAL ONE (08:13)
[2024-10-22] MEDS ORDERED: ceFAZolin 330 MG/ML 1 GM VIAL ONE (08:21)
[2024-10-22] MEDS ORDERED: SODIUM CHLORIDE 0.9% PF INJ 10 ML VIAL ONE (08:21)
[2024-10-22] MEDS ORDERED: PHENYLEPHRINE 100MCG/ML 5ML SYR ONE (08:46)
[2024-10-22] MEDS ORDERED: ePHEDrine sulfate 50 MG/5 ML SYR ONE (08:56)
--- NOTE | 2024-10-22 10:34 | Operative Report ---
PG Post Operative Report Pre & Post Diagnosis Operation Date: 10/22/24 07:30 Pre-Op Diagnosis: Closed left intertrochanteric hip fracture Post-Op Diagnosis: Closed left intertrochanteric hip fracture I identified the patient and participated in the time-out.: Yes Procedure Operation Date: 10/22/24 07:30 Actual Procedures p Left Intertrochanteric Femur Fracture Closed Reduction and Internal Fixation with Long Cephalomedullary Fixation Nail(Left) - Jared Cabrera MD Surgeon Jared Cabrera MD Pricer Bagger Shan Pena PA-C Estimated Blood Loss 150 Findings See Below 4 part comminuted proximal femur fracture closed reduced with supplemental mini open Mcdaniel reduction, stabilized along trochanteric fixation nail All [employer] implants: 11 mm/130 degree titanium cannulated trochanteric fixation nail of 400 mm length. 11.0 mm titanium helical blade of 115 mm length. Distal interlock screw measuring 52 mm. Specimens none Anesthesia Type MAC Spinal Regional Complications none Disposition Accompanied Patient To Recovery: No Disposition: Surgical ICU Indications 59-year-old male slipped and fell directly onto the lateral part of his left hip, resulting immediate pain and inability to weight-bear. He was taken to emergency room and found to have a proximal femur fracture. I reviewed the diagnosis, prognosis and recommended treatment of surgical stabilization with t he patient and his . I reviewed the risk benefits, and alternatives to surgery in detail. After discussion, they demonstrated good understanding, asked appropriate questions, and were agreeable to proceed with surgical treatment that I had recommended. Informed consent was obtained in the preoperative holding area. Description of Procedure On the day of surgery should be was greeted in the preoperative holding area and the informed consent was reviewed and confirmed. The surgical site was then identified by the patient and signed by myself. The patient was taken to the operating placed by the OR table and anesthesia was induced. The patient is then positioned on the fracture table. All jessica prominences were well padded. The operative foot was placed in the fracture boot with abundant padding. The well leg was secured. We then positioned the lower extremities in a scissor fashion with a non-op leg flexed down to allow visu alization with fluoroscopy which was confirmed before we prepped and draped. Surgical timeout was called and verified by all present. Antibiotics were infused, and equipment was available and functional. The procedure was initiated with a closed reduction maneuvers. Gentle in-line traction pulled the fracture out to length. The limb was then internally rotated to reduce the proximal femur. Flexion and adduction were used to adjust the reduction and allow access to the greater trochanter. We had adequate reduction prior to prepping and draping, with a plan to supplement the reduction with a mini open Mcdaniel placement to reduce the proximal femoral flexion. The leg was then prepped and draped in usual sterile fashion. Surgical timeout was reconfirmed. We initiated the surgical internal fixation portion with finding the start point with the tip of the greater trochanter. Fluoroscopic guidance was used and a small poke hole was established. The start point was confirmed on fluoroscopy in AP and lateral planes and the pin was advanced using a mallet. An incision was made about the pin to allow access for the reamers. The pin was then advanced past the lesser trochanter, and its position was confirmed using AP and lateral fluoroscopy. Using the protective sleeve, the opening reamer was advanced under power with fluoroscopic guidance over the guidepin. It was advanced slowly and we did ream out some lateral bone of the trochanter. The reduction wire was then advanced down the distal femur to the level of the superior pole of the patella. Measurement was taken from the tip of the trochanter down to the end of the guidewire, and the nail length was selected. The 12.5 mm reamer was run down the reduction wire for an 11 mm nail. We advanced the reaming in gradual increments up to a 12.5. An 11 mm nail was loaded onto the jig and advanced manually down the canal, while ensuring maintenance of the reduction on fluoroscopy. We then tapped it down into place until we achieve the good position for our cephalo-medullary screw. [place] the nail as it slid through the proximal segment help to reduce the comminuted trochanteric region. The cannula was placed on the jig to allow positioning of the cephalo-medullary screw. The skin incision was made in the appropriate spot. The jig cannulas were then placed against the lateral cortex. The cephalo-medullary screw guidepin was advanced towards the femoral head. The center-center position was confirmed on fluoroscopy in AP and lateral planes. The incision was extended to place a Mcdaniel onto the lateral portion of the femur. The femur was palpated as a Mcdaniel was directed to the anterior aspect and onto the proximal fragment to reduce the flexion moment. The reduction and placement of our pin were checked on AP and lateral views. The length of the screw was measured off the guide. The helical blade screw was then opened on the back table and prepared on the screwdriver. The lateral cortical opening drill, followed by the triple drill reamer for the helical blade was advanced under fluoroscopic guidance. The helical blade was advanced over the guidepin to appropriate position. The helical blade was locked in rotation and then the traction was taken off. Fluoroscopy confirmed maintenance of reduction and adequate position of the implant. The compression sleeve was then advanced against the lateral femur to improve the trochanteric-shaft reduction and compress the intertrochanteric region fracture. Attention was then directed distally to perform the interlock screws in using perfect [place] technique. 1 interlock screw was placed with a 5 mm diameter in the middle the slotted hole to allow some fracture compression. The length was measured using a depth gauge, with fluoroscopic guidance. This completed the fixation. This completed the fixation of the fracture. Fluoroscopy was used in both AP and lateral planes to evaluate the entirety of the fracture and implant. Reduction and implant positions were acceptable. The wounds were then thoroughly irrigated with bulb syringe and normal saline. The deep fascial layer was approximated with 0 Vicryl suture. The dermal layer was approximated using 2-0 Vicryl suture. The final skin closure was completed with yamel. Wounds were dressed with sterile Xeroform, sterile gauze, and Ioban intake and over ABDs. The patient tolerated procedure well, awoke from anesthesia without complication, was extubated in the operating room, and transferred to the PACU in stable condition. Disposition: The patient be weightbearing as tolerated. I recommended routine DVT prophylaxis consisting of oral aspirin. DVT prophylaxis should last 6 weeks. 24 hours of antibiotic prophylaxis should be continued. Physician surgeon assistant attestation: Shan Pena PA-C was present and scrubbed for the duration of the case. He was essential to prepping/draping, patient positioning, retraction, and assistance with wound closure. I attest to the content of the Intraoperative Record and any orders documented therein. Any exceptions are noted below.
--- NOTE | 2024-10-22 10:52 | Anesthesiology Progress Note ---
Date of Service October 22, 2024 Anesthesia Post Procedure Vital Signs Vital Signs: Temp Pulse Pulse Resp BP BP Pulse Ox 10/22/24 10:45 36.6 C 93 H 14 115/72 92 10/22/24 10:35 105 H 12 99/64 L 92 10/22/24 10:25 88 12 116/72 93 10/22/24 10:15 95 H 12 113/69 93 10/22/24 10:09 36.7 C 99 H 12 100/70 93 10/22/24 07:56 36.4 C L 18 168/81 H 94 10/22/24 04:19 36.8 C 72 18 150/85 H 93 10/22/24 01:22 68 16 99 10/21/24 20:58 73 16 99 10/21/24 20:05 36.5 C 82 18 185/119 H 94 10/21/24 19:45 10/21/24 18:27 10/21/24 18:14 73 18 176/99 H 97 10/21/24 18:03 36.3 C L 75 20 203/117 H 95 10/21/24 16:34 68 18 181/110 H 98 10/21/24 14:54 59 L 10/21/24 14:30 66 16 175/110 H 95 10/21/24 13:49 54 L 94 10/21/24 13:11 88 L 10/21/24 13:06 36.5 C 58 L 16 187/108 H 88 L O2 Del Method O2 Flow Rate 10/22/24 10:45 Nasal Cannula 4 10/22/24 10:35 Nasal Cannula 4 10/22/24 10:25 Oxymask 7 10/22/24 10:15 Oxymask 7 10/22/24 10:09 Oxymask 7 10/22/24 07:56 Room Air, Nasal Cannula 10/22/24 04:19 Nasal Cannula 2 10/22/24 01:22 Room Air 10/21/24 20:58 Room Air 10/21/24 20:05 Nasal Cannula 2 10/21/24 19:45 Nasal Cannula 2 10/21/24 18:27 Nasal Cannula 2 10/21/24 18:14 Nasal Cannula 2 10/21/24 18:03 Nasal Cannula 2 10/21/24 16:34 Nasal Cannula 2 10/21/24 14:54 10/21/24 14:30 Nasal Cannula 2 10/21/24 13:49 Room Air 10/21/24 13:11 Room Air 10/21/24 13:06 Room Air Pain Intensity Left Hip: Pain Intensity: 9 Transfer of Care Handoff Completed per policy Notes Mental Status: alert / awake / arousable Patient Amnestic to Procedure: Yes Nausea / Vomiting: adequately controlled Pain: adequately controlled Airway Patency, RR, SpO2: stable & adequate BP & HR: stable & adequate Hydration State: stable & adequate Anesthetic Complications: no major complications apparent
[2024-10-22] MEDS: HYDROmorphone INJ 0.5 MG/0.5 ML SYR IV PRN (11:12)
[2024-10-22] MEDS: POLYETHYLENE (MIRALAX) 17 GM PACK PO SCH (11:13)
[2024-10-22] MEDS: hydroCHLOROthiazide 25 MG TAB PO SCH (11:18)
[2024-10-22] MEDS: lisinopril 20 MG TAB PO SCH (11:18)
[2024-10-22] MEDS: BUPIVACAINE/EPINEPHRINE 0.5% MPF 1:200,000 30 ML VIAL ONE (11:30)
[2024-10-22] MEDS: TRANEXAMIC ACID / 0.7% NACL 1000MG/100ML BAG IV ONE (11:30)
--- NOTE | 2024-10-22 12:25 | Hospitalist Progress Note ---
Date of Service October 22, 2024 Assessment & Plan (1) Closed left hip fracture: Plan Mechanical fall Left Hip fracture Left hip XR on admission noted acute, comminuted, angulated and displaced intertrochanteric left femoral fracture S/P Left Long Trochanteric Nail today Pain control Patient and wants to get patient home or closer to home as soon as possible Will get PT/OT eval Possible COPD exacerbation: Patient reports that he does not have diagnosis of COPD Given his smoking history, possible undiagnosed underlying COPD. On admission he had wheezing bilaterally CXR with no acute finding. Continue nebs and monitor Hypertensive urgency: Blood pressure elevated at 187/108 at presentation. Patient noncompliant with his blood pressure medication, patient has a history of hypertension. Continue home lisinopril and hydrochlorothiazide. Will confirm if patient needs script on DC DVT prophylaxis: ASA BID per Ortho Full code I spent a total of 55 minutes coordinating, documenting and providing care for this patient excluding time spent in performance of separately billed services Admission and Anticipated Discharge Date Admission Date: October 21, 2024 Subjective Patient seen and examined on return from OR at bedside Patient currently reports surgical site pain and got pain meds some mins ago No other complaints at this time Physical Exam Constitutional: + well hydrated; no acute distress Eyes: PERRL, conjunctivae normal, anicteric sclerae ENMT: external ear and nose normal, oropharynx normal Respiratory: normal respiratory effort, lungs clear to auscultation Cardiovascular: Rate/Rhythm: regular rate and regular rhythm Gastrointestinal (Abdomen): normal bowel sounds, soft, nontender, no hepatosplenomegaly Musculoskeletal: Clean dressing over left hip surgical site Neurologic: PERRL, EOMI, accommodation nl, no face palsy, no dysarthria Psychiatric: A+Ox3, euthymic affect Results & Data Results & Data Vital Signs (Past 12 Hours) Vital Signs Temp Pulse Resp BP Pulse Ox O2 Del Method O2 Flow Rate 10/22/24 12:14 82 16 93 Nasal Cannula 4 10/22/24 12:03 36.4 C L 91 H 19 123/75 92 Nasal Cannula 2 10/22/24 11:33 36.5 C 91 H 18 108/71 93 Room Air 2 10/22/24 11:18 36.5 C 92 H 18 121/76 93 Nasal Cannula 4 10/22/24 11:00 Nasal Cannula 4 10/22/24 10:45 36.6 C 93 H 14 115/72 92 Nasal Cannula 4 10/22/24 10:35 105 H 12 99/64 L 92 Nasal Cannula 4 10/22/24 10:25 88 12 116/72 93 Oxymask 7 10/22/24 10:15 95 H 12 113/69 93 Oxymask 7 10/22/24 10:09 36.7 C 99 H 12 100/70 93 Oxymask 7 10/22/24 07:56 36.4 C L 18 168/81 H 94 Room Air, Nasal Cannula 10/22/24 04:19 36.8 C 72 18 150/85 H 93 Nasal Cannula 2 10/22/24 01:22 68 16 99 Room Air Laboratory Results Abnormal lab results 10/21/24 10/21/24 10/22/24 Range/Units 13:40 17:32 07:05 RBC 4.37 L 4.09 L (4.70-6.10) M/uL Hgb 12.9 L 11.8 L (14.0-18.0) g/dl Hct 37.7 L 34.7 L (42.0-52.0) % RDW Std Deviation 36.2 L (36.4-46.3) fL MPV 9.0 L 8.9 L (9.4-12.4) fL BUN/Creatinine Ratio 22.7 H (10-20) Glucose 171 H 247 H (70-99(Fasting)) mg/dl Calcium 8.3 L (8.6-10.3) mg/dl Urine Ketones 1+ H (Negative) Urine Blood 2+ H (Negative) Urine RBC (Auto) >20 H (0-2) /hpf
[2024-10-22] MEDS: oxyCODONE HCL IR 5 MG TAB (IMMEDIATE RELEASE) PO PRN (12:28)
[2024-10-22] MEDS: LACTATED RINGER'S 1,000 ML IV SCH (13:57)
[2024-10-22] MEDS: ceFAZolin 2000MG 2,000 MG/15 ML SYR IV SCH (16:15)
[2024-10-23 07:59] LABS: Hematocrit (blood only) 25.4 % (42.0-52.0); Hemoglobin 8.7 g/dl (14.0-18.0); Mean Corpuscular Hemoglobin 29.7 pg (25.0-34.0); Mean Corpuscular Hgb Conc 34.3 g/dL (32.0-36.0); Mean Corpuscular Volume 86.7 fL (80.0-100.0); Mean Platelet Volume 9.3 fL (9.4-12.4); Platelet Count 169 K/uL (130-400); RDW Coefficient of Variation 12.2 % (11.5-14.5); RDW Standard Deviation 39.2 fL (36.4-46.3); Red Blood Count 2.93 M/uL (4.70-6.10); White Blood Count 9.62 K/ul (4.8-10.8)
[2024-10-23 08:00] LABS: Basophils # (auto) 0.02 K/uL (0.00-0.20); Basophils % (auto) 0.2 %; Eosinophils # (auto) 0.03 K/uL (0.00-0.50); Eosinophils % (auto) 0.3 %; Immature Granulocytes # (auto) 0.04 K/uL (0.01-0.20); Immature Granulocytes % (auto) 0.4 %; Lymphocytes # (auto) 2.02 K/uL (1.20-3.40); Monocytes # (auto) 0.75 K/uL (0.11-0.59); Monocytes % (auto) 7.8 %; Neutrophils # (auto) 6.76 K/uL (1.40-6.50); Neutrophils % (auto) 70.3 %
--- NOTE | 2024-10-23 08:10 | Fluoroscopy Report ---
FL femur LT 2V CLINICAL HISTORY: LT TROCH NAIL COMPARISON STUDY: Left hip radiographs October 21, 2024. FLUOROSCOPY TIME: 3 minutes and 26 seconds. Ka,r: 72.40 mGy FLUOROSCOPIC IMAGES: 4 FINDINGS: Fluoroscopy was provided during open reduction and internal fixation of the intertrochanter ic fracture of the left femur with trochanteric nail. Fracture alignment has significantly improved a nd is near anatomic. IMPRESSION: Fluoroscopy provided during open reduction and internal fixation of the intertrochanteri c left femoral fracture. ACT 112: Negative or not required by law. Electronically signed by: Chuckie Garza M.D. 10/23/2024 8:09 AM
[2024-10-23] MEDS: ASPIRIN 81 MG ECTAB PO SCH (08:11)
[2024-10-23 08:25] LABS: BUN Creatinine Ratio 25.8 (10-20); Calcium 7.8 mg/dl (8.6-10.3); Creatinine Clr Calc Pharmacy 82.9 ml/min; Potassium 3.5 mmol/L (3.5-5.1)
--- NOTE | 2024-10-23 10:17 | Orthopedic Progress Note ---
Date of Service October 23, 2024 Assessment & Plan (1) Intertrochanteric fracture of left hip: (2) Acute blood loss anemia: Plan POD 1 left intertrochanteric fracture cephalomedullary nail. Making expected progress. Acute blood loss anemia expected with his fracture pattern. -PT/OT: Weightbearing as tolerated and range of motion as tolerated -DVT PPx: Daily aspirin should be for sufficient for 6 weeks -Complete 24 hours perioperative antibiotic prophylaxis today -DC Guillory and mobilize as he can tolerate -Maintain dressing until postoperative day 3 or before discharge if tomorrow Dispo: Per primary team and PT/OT evals. Patient and his state that they wish to avoid any detention because she is an immunocompromised cancer patient. Expect that home PT may be the best option. Subjective Reports that he is feeling "fine." Pain is tolerable. Recognize that he has a ways to go with physical therapy after yesterday's session. Looking forward today's therapy. No issues with diet or appetite. Review of Systems All systems reviewed & are unremarkable except as noted in HPI & below. Physical Exam LLE: The dressing is clean and dry and intact. No obvious drainage. Thigh is firm but minimally tender. He can extend his knee with some difficulty. No palpable effusion. DNVI Constitutional WD/WN, vitals as above no acute distress and not intoxicated appearing Respiratory normal respiratory effort; no labored breathing Cardiovascular Extremities: normal capillary refill Results & Data Results & Data Laboratory Results Laboratory Tests 10/22/24 10/23/24 10/23/24 07:05 07:13 07:13 Hgb 11.8 L 8.7 L D Hct 34.7 L 25.4 L Diagnostic Findings . PG Care Time/CCT Total # of Minutes Spent Total Time Spent with Patient: Total time spent is greater than 50% in coordination of care (as documented) at patient's floor/unit and/or counseling patient: Coding Level of Care Code 78308 Post Operative Follow-Up Diagnoses Intertrochanteric fracture of left hip S72.142A Acute blood loss anemia D62
--- NOTE | 2024-10-23 13:23 | Hospitalist Progress Note ---
Date of Service October 23, 2024 Assessment & Plan (1) Closed left hip fracture: Plan Mechanical fall Left Hip fracture Left hip XR on admission noted acute, comminuted, angulated and displaced intertrochanteric left femoral fracture S/P Left Long Trochanteric Nail POD 1 Pain control PT/OT eval noted. Rehab recommended Patient and will prefer Home with home health services CM aware. To make arrangements tomorrow AM before dc Post op Hb is 8.7 (was 11.8 preop) Possible blood loss anemia from procedure plus dilutional Monitor Possible COPD exacerbation: Patient reports that he does not have diagnosis of COPD Given his smoking history, possible undiagnosed underlying COPD. On admission he had wheezing bilaterally CXR with no acute finding. Counseled about this Follow up with PCP Hypertensive urgency: Blood pressure elevated at 187/108 at presentation. Patient noncompliant with his blood pressure medication, patient has a history of hypertension. Continue home lisinopril and hydrochlorothiazide. Prescribe on dc as it's been a while he stopped taking them DVT prophylaxis: ASA for 6 weeks per ortho Full code I spent a total of 45 minutes coordinating, documenting and providing care for this patient excluding time spent in performance of separately billed services Admission and Anticipated Discharge Date Admission Date: October 21, 2024 Subjective Patient seen and examined Reports surgical site pain is well controlled Denied any other complaints Physical Exam Constitutional: + well hydrated; no acute distress Eyes: PERRL, conjunctivae normal, anicteric sclerae ENMT: external ear and nose normal, oropharynx normal Respiratory: normal respiratory effort, lungs clear to auscultation Cardiovascular: Rate/Rhythm: regular rate and regular rhythm Gastrointestinal (Abdomen): normal bowel sounds, soft, nontender, no hepatosplenomegaly Musculoskeletal: Clean dressing over left hip Neurologic: PERRL, EOMI, accommodation nl, no face palsy, no dysarthria Psychiatric: A+Ox3, euthymic affect Results & Data Results & Data Vital Signs (Past 12 Hours) Vital Signs Temp Pulse Resp BP BP Pulse Ox O2 Del Method 10/23/24 11:22 36.7 C 89 18 134/69 92 Room Air 10/23/24 09:10 Nasal Cannula 10/23/24 08:48 36.4 C L 92 H 18 116/68 93 Room Air 10/23/24 08:08 96 H 18 109/68 10/23/24 07:14 82 18 92 Room Air 02/16/25 05:49 78 95 Nasal Cannula 10/23/24 02:59 36.7 C 90 135/69 90 Room Air O2 Flow Rate 10/23/24 11:22 10/23/24 09:10 1 10/23/24 08:48 10/23/24 08:08 10/23/24 07:14 10/23/24 05:49 1 10/23/24 02:59 Laboratory Results Abnormal lab results 10/23/24 Range/Units 07:13 RBC 2.93 L (4.70-6.10) M/uL Hgb 8.7 L D (14.0-18.0) g/dl Hct 25.4 L (42.0-52.0) % MPV 9.3 L (9.4-12.4) fL Neut # (Auto) 6.76 H (1.40-6.50) K/uL [place] # (Auto) 0.75 H (0.11-0.59) K/uL BUN 31 H (6-23) mg/dl BUN/Creatinine Ratio 25.8 H (10-20) Glucose 189 H (70-99(Fasting)) mg/dl Calcium 7.8 L (8.6-10.3) mg/dl 25-OH Vitamin D Total 10.4 L (30-100) ng/ml
[2024-10-23 20:45] VITALS: RESP 18
[2024-10-23] MEDS ORDERED: HEPARIN SOD 5,000 UNIT/0.5 ML VIAL SQ SCH (21:00)
[2024-10-24 07:25] VITALS: TEMP 98.2
[2024-10-24 07:41] VITALS: PULSE 85; O2SAT 93
[2024-10-24 08:57] LABS: Hematocrit (blood only) 26.3 % (42.0-52.0); Hemoglobin 8.7 g/dl (14.0-18.0); Mean Corpuscular Hemoglobin 29.2 pg (25.0-34.0); Mean Corpuscular Hgb Conc 33.1 g/dL (32.0-36.0); Mean Corpuscular Volume 88.3 fL (80.0-100.0); Platelet Count 177 K/uL (130-400); RDW Coefficient of Variation 12.5 % (11.5-14.5); RDW Standard Deviation 40.1 fL (36.4-46.3); Red Blood Count 2.98 M/uL (4.70-6.10); White Blood Count 9.26 K/ul (4.8-10.8)
[2024-10-24 09:12] LABS: BUN Creatinine Ratio 27.1 (10-20); Calcium 8.3 mg/dl (8.6-10.3); Potassium 3.9 mmol/L (3.5-5.1)
--- NOTE | 2024-10-24 09:18 | Orthopedic Progress Note ---
Date of Service October 24, 2024 Assessment & Plan (1) Intertrochanteric fracture of left hip: Postop day 2 from a left intertrochanteric hip fracture closed reduction internal fixation by Dr. Cabrera. -Aspirin, SCDs, teds and ambulation for DVT prophylaxis -Continue to work with PT/OT for weightbearing as tolerated and range of motion as tolerated in the left lower extremity. -Would recommend continued case management care for discharge planning and safe discharge home with therapy. Per case management note this morning, they received a call from [facility] health and they are able to accept the patient and will see him tomorrow. -He is orthopedically stable for discharge. -Patient and family would prefer to see orthopedic provider closer to home. Would recommend a 2 to 3-week postop visit for x-rays and staple removal/wound check. -Did encourage and reach out any question concerns to our orthopedic office. Subjective Operation Date: 10/22/24 07:30 Actual Procedures p Left Intertrochanteric Femur Fracture Closed Reduction and Internal Fixation with Long Cephalomedullary Fixation Nail(Left) - Jared Cabrera MD Clement is a 59-year-old male who is postop day 2 from a left intertrochanteric femur fracture closed reduction internal fixation. He is frustrated at my visit today. He states that he is in much pain. He states that the routine pain medication including IV Dilaudid is not touching his pain. He does not understand why he has swelling and pain in the left hip. States that he has worked with physical therapy/Occupational Therapy with ambulating and that he is ambulating well, however he would prefer crutches vs walker as he is able to rest on crutches easier than resting with a walker. I will defer this to PT/OT. Patient's is in the room with him today. They state that they are not pl eased with his nursing care so far. They state that he is happy with his surgery and surgical team, however feels that the nursing care has been subpar. Also at today's visit, they do state that they would like to follow-up with an orthopedic provider closer to their home in [facility]. No other questions or concerns today from the patient or family. Review of Systems All systems reviewed & are unremarkable except as noted in HPI & below. Physical Exam General: Alert and oriented. In no acute distress. Left hip: Dressing satisfactory. It is dry and intact without saturation. Dressing was not taken down as it is not postop day 3 yet. He is resting well at 90 degrees at his hip as well as his knee on his hospital bed eating breakfast. He has good range of motion of the hip and knee as well as the foot and ankle. Edema in the left lower extremity as expected postsurgically. He is neurovascularly intact in the left lower extremity. Results & Data Results & Data Laboratory Results . Diagnostic Findings . PG Care Time/CCT Total # of Minutes Spent Total Time Spent with Patient: Total time spent is greater than 50% in coordination of care (as documented) at patient's floor/unit and/or counseling patient: Coding Level of Care Code 55069 Post Operative Follow-Up Diagnoses Intertrochanteric fracture of left hip S72.142A
[2024-10-24] MEDS ORDERED: ALBUT/IPRATROP 3MG/0.5MG NEB 3 ML VIAL NEB PRN (09:25)
[2024-10-24 12:52] VITALS: BP 116/68
--- NOTE | 2024-10-24 13:54 | Discharge Summary ---
Date of Service October 24, 2024 Admission HPI Per Admitting Provider 59-year-old male with PMH of HTN, medical noncompliance, ongoing tobacco use abuse [15 cigarettes a day for more than 45 years] presented to the ED after he slipped on ice and hit his left hip. Came in with complaint of left hip pain. Patient denies any lightheadedness/dizziness/palpitation prior to fall. Patient noted to have left hip fracture. Patient denies fever/sore throat/nausea/vomiting/chest pain/acute changes in bowel or bladder habits/acute changes in appetite. Patient reports he was on lisinopril and hydrochlorothiazide in the past for blood pressure management, he discontinued those medications by himself because he didn't like it made him pee. Patient reports his cough at baseline, denies any increase in frequency of the cough or any change in the mucus production. Patient reports smoking 15 cigarettes a day for more than 45 years. Patient denies previous drug use, reports very occasional alcohol drinks. Full code Medication reviewed with the patient at bedside. Plan of care discussed with the patient at bedside who voiced understanding and was agreeable to plan of care. Admission Exam Per Admitting Provider GENERAL: Alert and oriented x3. NAD, on RA. HEENT: No pallor, no icterus. Pupils equal, round and reactive to light. Oral mucosa moist. NECK: No JVD, no neck masses. HEART: S1 and S2 heard. Regular rate and rhythm. No murmur, no gallop. RESPIRATORY SYSTEM: Normal AP diameter. No accessory muscle use. b/l wheezing, no crackles. ABDOMEN: Soft, bowel sounds present, nontender, no distention. CENTRAL NERVOUS SYSTEM: No facial droop. Speech is clear. Obeys simple commands. Moves extremities. EXTREMITIES: No edema, no erythema seen. LLE ext rotated/shortened. Lt hip tender rom. Principal Diagnosis Left intertrochanteric femur fracture Hypertension Discharge Exam Constitutional + well hydrated; no acute distress Eyes PERRL, conjunctivae normal, anicteric sclerae ENMT external ear and nose normal, oropharynx normal Respiratory normal respiratory effort, lungs clear to auscultation Cardiovascular Rate/Rhythm: regular rate and regular rhythm Gastrointestinal (Abdomen) normal bowel sounds, soft, nontender, no hepatosplenomegaly Musculoskeletal Clean dressing over surgical site Neurologic PERRL, EOMI, accommodation nl, no face palsy, no dysarthria Psychiatric A+Ox3, euthymic affect Discharge Data Allergies Allergy/AdvReac Type Severity Reaction Status Date / Time No Known Allergies Allergy Unverified 10/21/24 15:48 Consultations 10/21/24 16:01 ED Decision to Admit Stat 10/21/24 16:13 Consult Orthopedic Surgery Routine Procedures Performed Operation Date: 10/22/24 07:30 Actual Procedures p Left Long Trochanteric Nail(Left) - Jared Cabrera MD Ordered Studies 10/22/24 FL femur LT 2V Routine Hospital Course (1) Closed left hip fracture: Plan Mechanical fall Left Hip fracture Left hip XR on admission noted acute, comminuted, angulated and displaced intertrochanteric left femoral fracture S/P Left Long Trochanteric Nail POD 2 Pain control PT/OT eval noted. Rehab recommended Patient and will prefer Home with home health services Post op Hb stable at 8.7 (was 11.8 preop) Possible blood loss anemia from procedure plus dilutional Possible COPD exacerbation: Patient reports that he does not have diagnosis of COPD Given his smoking history, possible undiagnosed underlying COPD. On admission he had wheezing bilaterally CXR with no acute finding. Counseled about smoking cessation Follow up with PCP Hypertensive urgency: Blood pressure elevated at 187/108 at presentation. Patient noncompliant with his blood pressure medication, patient has a history of hypertension. BP better controlled Continue home lisinopril and hydrochlorothiazide. Refills sent Total Time Total Time Spent Total Time Spent (In Minutes): 35 Total Time Includes: Examination of the Patient, Discharge Planning and Medication Reconciliation Discharge Plan Discharge Items Patient Disposition: Home - Home Health Services Reason For Visit: FALL, HIP FRACTURE Discharge Diagnosis: Left intertrochanteric femur fracture Hypertension Activity: Per Instructions section Non-emergency contact: Surgeon Call non-emergency contact if: your pain is not controlled and your temperature is above 101 Follow-up/Referrals: Jared Carbera MD [Surgeon] - (2 to 3 weeks after surgery for staple removal and x-rays) Qing Melo PA-C [Primary Care Provider] - (Date & Time 11/02/2024 9:00 AM Provider: Qing Melo PA-C [facility] ) Diet: Heart Healthy Addtl Attending Provider Instructions: Mr Reese You were hospitalized after a fall with left hip fracture. You had surgery for the fracture. Please refer to Orthopedic surgeon's instruction below. Please take your blood pressure medications as prescribed and quit smoking as we discussed. Please ensure follow up with your Primary Doctor. It was a pleasure taking care of you Addtl [employer] Provider Instructions: Orthopaedic Instructions after Hip Fracture Surgery: Please keep your wound clean and dry. Do not remove any of the taras. [place] were removed at your follow-up appointment with orthopedic surgery. Please continue daily dressing changes until your follow-up appointment. If there is no drainage onto the dressing for total of 24 hours, you may shower after 5 days from surgery. Allow soap and water to run over the incision, no scrubbing, and pat dry. Do not submerse (sitting in bathtub, hot tub, jacuzzi, pool, etc) the wound for at least 3 weeks. You may bear weight on your lower extremities as tolerated. Please use the walker or as instructed by physical therapy. For pain control please use Tylenol as needed. You may also have a stronger pain medication prescribed to you at discharge. You can also apply ice to the surgical site. To reduce the risk of dangerous blood clots please continue aspirin for 6 weeks by mouth daily or the medication for blood clots recommended by your medical team. Orthopedic clinic follow-up should be in 2-3 weeks after surgery for repeat x- ray. Taras can be removed at the orthopedic follow-up. If necessary, taras can be removed by a nurse at home or at a nursing facility upon our order. Please contact the clinic. Pending Studies at Discharge: No Stand-Alone Forms: My [facility], Smoking Cessation Medications and DC Order Prescriptions: New albuterol sulfate 90 mcg/actuation HFA aerosol inhaler 1 inh inhalation Q6H PRN (Reason: shortness of breath or wheezing) Qty: 6.7 0RF aspirin 81 mg Tablet,Delayed Release (Dr/Ec) 81 mg PO BID 42 Days Qty: 84 0RF oxycodone-acetaminophen [Percocet] 5-325 mg tablet 1 tab PO Q6H PRN (Reason: pain) Qty: 20 0RF Continued lisinopril 20 mg tablet 20 mg PO DAILY Qty: 30 0RF hydrochlorothiazide 12.5 mg capsule 12.5 mg PO DAILY Qty: 30 0RF Discharge Orders: Discharge Order (Routine); Ordered 10/24/24 Ordered By: Carine Granados Admission Data Admit Date/Time: 10/21/24 16:12 Attending Provider: Carine Granados I. Admit Provider: Paulette Carrillo Primary Care Provider: Qing Melo Other Providers: Paulette Carrillo; Jared Cabrera; [facility] Other Interventions: Discharge Summary Assessment (RN) Last Done: 10/24/24 12:51
== END 2024-10-24 14:21 | disposition home health service (06) | DRG 481 ==
LOC: ED 12:48 → SUATTDRO 16:12 → 3N 16:12
DX: Z91.148 Patient's other noncompliance with medication regimen for other reason; I10 Essential (primary) hypertension; I16.0 Hypertensive urgency; Y93.89 Activity, other specified; T50.2X6A Underdosing of carbonic-anhydrase inhibitors, benzothiadiazides and other diuretics, initial encounter; Y99.0 Civilian activity done for income or pay; J44.1 Chronic obstructive pulmonary disease with (acute) exacerbation; F17.210 Nicotine dependence, cigarettes, uncomplicated; W00.0XXA Fall on same level due to ice and snow, initial encounter; T46.4X6A Underdosing of angiotensin-converting-enzyme inhibitors, initial encounter; S72.142A Displaced intertrochanteric fracture of left femur, initial encounter for closed fracture; D62 Acute posthemorrhagic anemia